=== PATIENT | male | born 1965 | race Caucasian/White ===

== ENCOUNTER → 2021-08-09 | Outpatient (CLI) | payer BC ==
[~2021-08-09] MED LIST: OMEPRAZOLE40 MG PO; SIMVASTATIN20 M1 PO; VIBRAMYCIN100 MG PO
[2021-08-09 16:02] LABS: HEMATOCRIT 46.2 % (42.0-52.0); HEMOGLOBIN 15.8 g/dL (13.5-18.0)
== END ==
LOC: LAB 15:43
PROVIDERS: Internal Medicine Medical Oncology
DX: R79.89 Other specified abnormal findings of blood chemistry (principal)

== ENCOUNTER → 2021-08-24 | Outpatient (CLI) | payer BC ==
[2021-08-24 13:41] LABS: HEMATOCRIT 42.1 % (42.0-52.0); HEMOGLOBIN 14.5 g/dL (13.5-18.0)
== END ==
LOC: LAB 13:33
PROVIDERS: Internal Medicine Medical Oncology
DX: R79.89 Other specified abnormal findings of blood chemistry (principal)

== ENCOUNTER → 2021-09-08 | Outpatient (CLI) | payer BC ==
[2021-09-08 16:54] LABS: HEMATOCRIT 40.9 % (42.0-52.0); HEMOGLOBIN 13.9 g/dL (13.5-18.0)
== END ==
LOC: LAB 16:38
PROVIDERS: Internal Medicine Medical Oncology
DX: R79.89 Other specified abnormal findings of blood chemistry (principal)

== ENCOUNTER → 2021-09-29 | Outpatient (CLI) | payer BC ==
[2021-09-29 16:19] LABS: HEMATOCRIT 42.6 % (42.0-52.0); HEMOGLOBIN 14.6 g/dL (13.5-18.0)
== END ==
LOC: LAB 16:08
PROVIDERS: Internal Medicine Medical Oncology
DX: R79.89 Other specified abnormal findings of blood chemistry (principal)

== ENCOUNTER → 2021-10-13 | Outpatient (CLI) | payer BC | LOC: LAB 15:44 | PROVIDERS: Internal Medicine Medical Oncology | DX: R79.89 Other specified abnormal findings of blood chemistry (principal) ==

== ENCOUNTER → 2021-11-02 | Outpatient (CLI) | payer BC ==
[2021-11-02 15:22] LABS: HEMATOCRIT 43.2 % (42.0-52.0); HEMOGLOBIN 14.5 g/dL (13.5-18.0)
== END ==
LOC: LAB 15:10
PROVIDERS: Internal Medicine Medical Oncology
DX: R79.89 Other specified abnormal findings of blood chemistry (principal)

== ENCOUNTER → 2021-11-17 | Outpatient (CLI) | payer BC ==
[2021-11-17 16:25] LABS: HEMATOCRIT 41.9 % (42.0-52.0); HEMOGLOBIN 14.1 g/dL (13.5-18.0)
== END ==
LOC: LAB 16:15
PROVIDERS: Internal Medicine Medical Oncology
DX: R79.89 Other specified abnormal findings of blood chemistry (principal)

== ENCOUNTER → 2022-03-01 | Outpatient (CLI) | payer OTHER ==
[2022-03-01 15:29] LABS: HEMATOCRIT 43.9 % (42.0-52.0); HEMOGLOBIN 14.9 g/dL (13.5-18.0)
== END ==
LOC: LAB 15:09
PROVIDERS: Internal Medicine Medical Oncology
DX: R79.89 Other specified abnormal findings of blood chemistry (principal)

== ENCOUNTER → 2022-09-14 | Outpatient (CLI) | payer BC ==
[2022-09-14 13:39] LABS: HEMATOCRIT 42.8 % (42.0-52.0); HEMOGLOBIN 14.7 g/dL (13.5-18.0)
== END ==
LOC: LAB 13:13
PROVIDERS: Internal Medicine Medical Oncology
DX: R79.89 Other specified abnormal findings of blood chemistry (principal)

== ENCOUNTER 2024-05-28 16:20 | Emergency (ER) | payer BC ==
[~2024-05-28] VITALS: Ht 177.8 cm; Wt 100.5 kg
[2024-05-28] MEDS ORDERED: LOVASTATIN20 M1 PO (16:26)
[2024-05-28] MEDS ORDERED: DULOXETINE60 MG PO (16:26)
[2024-05-28 17:03] LABS: BASO # 0.02 K/mm3 (0.02-0.10); EOS # 0.02 K/mm3 (0.04-0.40); EOS % 0.2 % (0.0-4.0); HEMATOCRIT 44.5 % (42.0-52.0); HEMOGLOBIN 15.6 g/dL (13.5-18.0); LYMPH# 1.47 K/mm3 (1.50-4.00); MEAN CELL VOLUME 90 fl (78-100); MEAN CORPUSCULAR HEMOGLOBIN 32 pg (27-31); MEAN CORPUSCULAR HGB CONC 35 g/dL (33-37); MEAN PLATELET VOLUME 11.6 fl (7.4-10.4); MONO # 0.79 K/mm3 (0.20-0.80); NEU # 6.41 K/mm3 (1.40-6.50); PLATELET COUNT 193 K/mm3 (130-400); RED BLOOD COUNT 4.96 M/mm3 (4.20-5.60); RED CELL DISTRIBUTION WIDTH 12.2 % (11.5-14.5); WHITE BLOOD COUNT 8.7 K/mm3 (4.8-10.8)
[2024-05-28] MEDS ORDERED: cloNIDine 0.1 MG TAB PO ONE ×2 (17:15→18:15)
[2024-05-28 17:20] LABS: ALBUMIN 4.5 g/dL (3.5-5.0)
[2024-05-28 17:22] LABS: CALCIUM 10.1 mg/dL (8.3-10.5)
[2024-05-28 17:23] LABS: TOTAL PROTEIN 7.2 g/dL (6.4-8.3)
[2024-05-28 17:42] LABS: D-DIMER 0.35 mg/L FEU (0.15-0.50)
[2024-05-28 17:54] LABS: TOTAL BILIRUBIN 1.3 mg/dL (0.2-1.2)
[2024-05-28] MEDS ORDERED: NS 1,000 ML IV SCH (18:15)
[2024-05-28] MEDS ORDERED: Lisinopril 5 MG TAB PO ONE (18:15)
[2024-05-28 19:38] VITALS: BP 157/95
== END 2024-05-28 19:38 | disposition home or self-care (01) ==
LOC: ED 16:20
PROVIDERS: Nurse Practitioner
DX: I10 Essential (primary) hypertension (principal); T43.215A Adverse effect of selective serotonin and norepinephrine reuptake inhibitors, initial encounter
CPT/HCPCS: J7030